=== PATIENT | female | born 1960 | race Caucasian/White ===

== ENCOUNTER 2016-09-09 07:57 | Day surgery (SDC) | payer OTHER ==
[~2016-09-09] VITALS: Ht 166.4 cm; Wt 78.0 kg
[~2016-09-09 07:57] MED LIST: Sodium Chloride LOK Flush 10 mL Syringe IV PRN; fentaNYL-PF 50 mCg/mL 2 mL Inj IVPUSH PRN
[2016-09-09 08:15] VITALS: BP 134/82; PULSE 75; RESP 16; O2SAT 98
[2016-09-09] MEDS: 0.9% Sodium Chloride 1,000 ML IV SCH ×2 (08:47→09:13)
[2016-09-09 09:25] VITALS: BP 122/71; PULSE 68; O2SAT 98
[2016-09-09 09:42] VITALS: BP 116/70; PULSE 63; O2SAT 100
[2016-09-09 09:43] VITALS: BP 125/77; PULSE 77; O2SAT 100
--- NOTE | 2016-09-09 19:06 | ENDO ---
[address] [address] ENDOSCOPY PROCEDURE PATIENT: CR TRENT : 1960 MR#: [id number] ADMIT: 09/09/2016 JOB ID: [id number] PRIMARY PROVIDER: Alecia French DO. PROCEDURE: Colonoscopy. INDICATIONS: A 56-year-old female who reports for colon cancer screening. EQUIPMENT: PCF-H190BL. SEDATION: 5 mg Versed, 125 mcg fentanyl. COMPLICATIONS: None identified. BOWEL PREPARATION: Fair. Adequate exam. PROCEDURE INFORMATION: After the risks and benefits were explained, written and verbal informed consent was obtained, the patient was brought into the endoscopy suite and placed in the left lateral decubitus position. Sedation was achieved using the above-stated medications with the addition of oxygen via nasal cannula. A digital rectal examination was accomplished and did not elicit any obvious anorectal pathology. Moderate internal and external hemorrhoids were, however, noted. The scope was introduced into the rectum and advanced to the cecum as identified by the appendiceal orifice and ileocecal valve. The scope was slowly withdrawn to carefully examine the mucosa for any defects or lesions. Retroflexed views were avoided in the rectum. Multiple direct views were made through the dentate line for exclusion of pathology. The colon was decompressed. The scope removed from the patient who tolerated the procedure well. FINDINGS: Extensive diverticulosis through the sigmoid and up into the transverse. No significant polyps, mass lesions, or inflammatory features identified throughout. ENDOSCOPIC DIAGNOSIS: 1. Diverticulosis. 2. Hemorrhoids. RECOMMENDATIONS: Repeat colonoscopy in 10 years' time, sooner should symptoms warrant.
== END 2016-09-09 23:59 | disposition home or self-care (01) ==
LOC: END 07:57
PROVIDERS: ATTEND Internal Medicine Gastroenterology
DX: Z12.11 Encounter for screening for malignant neoplasm of colon (principal); K57.30 Diverticulosis of large intestine without perforation or abscess without bleeding; K64.8 Other hemorrhoids; K64.4 Residual hemorrhoidal skin tags; M19.90 Unspecified osteoarthritis, unspecified site; H91.90 Unspecified hearing loss, unspecified ear; R00.2 Palpitations; H93.19 Tinnitus, unspecified ear; R42 Dizziness and giddiness; L30.9 Dermatitis, unspecified
CPT/HCPCS: 99153; G0121; G0500; J2250; J3010; J7030